=== PATIENT | female | born 1965 | race Two or more races ===

== ENCOUNTER → 2016-12-05 | Outpatient (CLI) | payer OTHER | LOC: RAD 09:42 | PROVIDERS: ATTEND Nurse Practitioner | DX: M54.5 Low back pain (principal); G89.29 Other chronic pain; M79.604 Pain in right leg | CPT/HCPCS: 72100 ==

== ENCOUNTER → 2016-12-19 | Outpatient (CLI) | payer OTHER | LOC: WI 09:32 | PROVIDERS: ATTEND Nurse Practitioner | DX: Z12.31 Encounter for screening mammogram for malignant neoplasm of breast (principal); N63 Unspecified lump in breast | CPT/HCPCS: 77067; G0202 ==

== ENCOUNTER → 2017-01-09 | Outpatient (CLI) | payer OTHER | LOC: WI 08:39 | PROVIDERS: ATTEND Nurse Practitioner | DX: N63 Unspecified lump in breast (principal) | CPT/HCPCS: 76642; G0204; G0206-52 ==